=== PATIENT | male | born 1960 | race Caucasian/White ===

== ENCOUNTER → 2025-05-28 14:21 | Outpatient (REF) | payer BC, SELFPAY | LOC: HWRAD 14:21 | PROVIDERS: ATTENDING PHYSICIAN Family Medicine | DX: R10.9 Unspecified abdominal pain (principal); N20.0 Calculus of kidney | CPT/HCPCS: 74176 ==

== ENCOUNTER 2025-08-07 06:17 | Day surgery (SDC) | payer BC, SELFPAY ==
[2025-08-01 09:00] LABS: Hematocrit 46.6 % (39.0-52.0); Hemoglobin 16.2 g/dL (13.0-18.0); Mean Corp Hgb Conc. 34.8 g/dL (33.0-37.0); Mean Corpuscular Volume 90.0 fL (80.0-94.0); Platelet Count 209 10^3/uL (130-400); Red Cell Dist. Width 13.8 % (11.5-14.5)
[2025-08-01 09:27] LABS: Blood Urea Nitrogen 15 mg/dl (9-20); Calcium 9.4 mg/dl (8.4-10.2); Carbon Dioxide 26 mmol/L (22-30); Chloride 109 mmol/L (98-107); Glucose 91 mg/dl (70-99); Potassium 4.2 mmol/L (3.5-5.1); Sodium 142 mmol/L (135-145); eGFR > 60.00
[2025-08-01 14:04] VITALS: BMI 26.9
[2025-08-07] VITALS (9 sets, daily range): BP systolic 119–142; BP diastolic 71–80; BMI 26.9
[2025-08-07] MEDS: NORMOSOL-R/PLASMALYTE-A 1000 IV (08:00)
[2025-08-07] MEDS: ZOFRAN 4 MG IV (12:21)
== END 2025-08-07 14:00 | disposition home or self-care (01) ==
LOC: SDS 06:17
PROVIDERS: ATTENDING PHYSICIAN Specialist; FAMILY PHYSICIAN Family Medicine
DX: N20.0 Calculus of kidney (principal)
CPT/HCPCS: 52356; 36415; 74018; 76000; 80048; 85027; 93005

== ENCOUNTER → 2025-09-30 11:27 | Outpatient (REF) | payer BC, SELFPAY ==
[2025-09-30 15:46] LABS: PSA, Total - Screen 3.20 ng/ml (0.0-4.0)
== END ==
LOC: RAD 11:27
PROVIDERS: ATTENDING PHYSICIAN Specialist; FAMILY PHYSICIAN Family Medicine
DX: R97.20 Elevated prostate specific antigen [PSA] (principal); N20.0 Calculus of kidney
CPT/HCPCS: 36415; 74018; G0103